=== PATIENT | female | born 1955 | race Caucasian/White ===

== ENCOUNTER 2023-07-19 15:12 | Outpatient (CLI) | payer MEDICARE, SELFPAY ==
[2023-07-19 16:13] LABS: Chol HDL Ratio 2.91 mg/dL (0.0-4.40); Cholesterol 166 mg/dL (0-200); HDL Cholesterol 57 mg/dL (60-100); LDL Cholesterol Calculated 88 mg/dL (50-129); LDL HDL Ratio 1.54 RATIO (0.00-3.22); Triglycerides 104 mg/dL (0-150)
== END 2023-07-19 15:13 | disposition home or self-care (01) ==
PROVIDERS: Visit Provider Internal Medicine Cardiovascular Disease
DX: E78.5 Hyperlipidemia, unspecified (principal)
CPT/HCPCS: 36415; 80061